=== PATIENT | female | born 1950 | race American Indian/Alaskan Native ===

== ENCOUNTER → 2017-12-02 09:55 | Outpatient (CLI) | payer OTHER | END | disposition home or self-care (01) | LOC: LAB 09:55 | DX: I10 Essential (primary) hypertension (principal); E11.9 Type 2 diabetes mellitus without complications; E03.8 Other specified hypothyroidism; E78.2 Mixed hyperlipidemia; M81.0 Age-related osteoporosis without current pathological fracture; D64.0 Hereditary sideroblastic anemia; E11.65 Type 2 diabetes mellitus with hyperglycemia; E66.3 Overweight ==

== ENCOUNTER 2017-12-05 11:53 | Outpatient (CLI) | payer OTHER | END 2017-12-05 12:11 | disposition home or self-care (01) | LOC: NUCLEAR 11:53 | DX: M81.0 Age-related osteoporosis without current pathological fracture (principal); Z13.820 Encounter for screening for osteoporosis ==

== ENCOUNTER 2018-01-31 09:36 | Outpatient (CLI) | payer OTHER | END 2018-01-31 09:44 | disposition home or self-care (01) | LOC: SONOGRAMA 09:36 | DX: N60.11 Diffuse cystic mastopathy of right breast (principal); N60.12 Diffuse cystic mastopathy of left breast; N63.21 Unspecified lump in the left breast, upper outer quadrant ==

== ENCOUNTER 2018-02-13 11:16 | Outpatient (CLI) | payer OTHER | END 2018-02-13 11:22 | disposition home or self-care (01) | LOC: LAB 11:16 | DX: N18.9 Chronic kidney disease, unspecified (principal) ==

== ENCOUNTER 2018-12-02 08:50 | Outpatient (CLI) | payer OTHER ==
[~2018-12-02 08:50] MED LIST: AMILODIPINE PO; ATORVASTATIN CA20 MG PO; IBRERSARTAN PO; MAGNESIUM400 MG PO; METFORMIN HCL850 MG PO; PROTECT PLUS N237 ML PO
== END 2018-12-02 08:58 | disposition home or self-care (01) ==
LOC: LAB 08:50
DX: E78.2 Mixed hyperlipidemia (principal); E11.9 Type 2 diabetes mellitus without complications; E66.09 Other obesity due to excess calories; I10 Essential (primary) hypertension; R94.5 Abnormal results of liver function studies; E03.8 Other specified hypothyroidism; D64.0 Hereditary sideroblastic anemia; M81.0 Age-related osteoporosis without current pathological fracture; K72.00 Acute and subacute hepatic failure without coma

== ENCOUNTER 2020-08-17 15:02 | Outpatient (CLI) | payer OTHER | END 2020-08-17 16:14 | disposition home or self-care (01) | LOC: TOM 15:02 | PROVIDERS: ATTEND Internal Medicine Cardiovascular Disease | DX: R91.1 Solitary pulmonary nodule (principal); K44.9 Diaphragmatic hernia without obstruction or gangrene; K57.90 Diverticulosis of intestine, part unspecified, without perforation or abscess without bleeding ==

== ENCOUNTER → 2023-08-30 09:55 | Outpatient (CLI) | payer OTHER ==
[2023-08-30 11:10] LABS: MEAN CELL VOLUME 94.1 fL (80.00-100.00); MEAN CORPUSCULAR HEMOGLOBIN 31.4 pg (27.00-32.0); MEAN CORPUSCULAR HGB CONC 33.4 g/dl (32.0-36.0); PLATELET COUNT 240 K/uL (150-450); RED BLOOD COUNT 3.82 M/uL (4.00-6.00); RED CELL DISTRIBUTION WIDTH 13.3 % (11.5-14.5)
[2023-08-30 11:52] LABS: CALCIUM 9.4 mg/dL (8.5-10.1); CREATININE SERUM 0.8 mg/dL (0.55-1.02); GFR 69.92; POTASSIUM 3.68 mEq/L (3.5-5.1); T4 TOTAL 4.92 UG/DL (4.8-13.9); TSH 0.431 uIU/mL (0.358-3.74)
[2023-08-30 12:06] LABS: PH,URINE 6.5 (5.0-8.0); URINE APPEARANCE Clear; URINE BILIRRUBIN Negative (NEGATIVE); URINE BLOOD Negative; URINE COLOR Yellow; URINE GLUCOSE Negative (NEGATIVE); URINE LEUKOCYTE Moderate; URINE NITRATE Positive; URINE PROTEIN Negative (NEGATIVE); URINE UROBILINOGEN 0.2 E.U./dl
[2023-08-30 12:10] LABS: URINE EPITHELIAL CELLS 7.7 uL (0.0-38.8); URINE RBC 2.2 uL (0.0-20.8)
[2023-08-30 12:52] LABS: URINE BACTERIA > 9821.2 uL (0.0-1933)
== END | disposition home or self-care (01) ==
LOC: LAB 09:55
PROVIDERS: ATTEND Internal Medicine Cardiovascular Disease
DX: E78.2 Mixed hyperlipidemia (principal); E03.9 Hypothyroidism, unspecified; I10 Essential (primary) hypertension

== ENCOUNTER 2023-10-09 09:33 | Outpatient (CLI) | payer OTHER | END 2023-10-09 13:01 | disposition home or self-care (01) | LOC: SONOGRAMA 09:33 | PROVIDERS: ATTEND Internal Medicine Gastroenterology | DX: R10.9 Unspecified abdominal pain (principal) ==